=== PATIENT | male | born 1950 | race Caucasian/White ===

== ENCOUNTER 2020-02-15 19:33 | Inpatient (IN) | payer MEDICARE, OTHER ==
[~2020-02-15] VITALS: Ht 177.8 cm; Wt 113.4 kg
--- NOTE | 2020-02-15 19:35 | NUR ---
PT BIBRA FROM HOME C/O SOB. PT TESTED POSITIVE FOR COVID YESTERDAY. O2 77% RA. O2 90% ON 4L. PT BREATHING WITH DIFFICULTY, PLACED ON 15L O2 VIA NRB. PT SKIN WARM, DRY AND INTACT. PT PUT IN GOWN AND IV INTIATED. 20G IN LEFT HAND. PT ATTACHED TO MONITOR AND POX. CALL LIGHT WITHIN REACH. WILL CONTINUE TO MONITOR.
--- NOTE | 2020-02-15 19:40 | NUR ---
blood sample and blood cultures obtained and sent to lab
[2020-02-15] MEDS ORDERED: ALBUTEROL FS 2.5 MG/3 ML VIAL.NEB CONTNEB ONE (20:00)
[2020-02-15] MEDS ORDERED: DEXAMETHASONE SOD PHOSPHATE 10 MG/ML VIAL IV ONE (20:00)
[2020-02-15] MEDS ORDERED: IPRATROPIUM NEB FS 0.5 MG/2.5 ML AMPUL.NEB NEB ONE (20:00)
[2020-02-15 20:03] LABS: BASOPHILS # (AUTO) 0.1 /CMM (0.0-0.2); BASOPHILS % (AUTO) 1.6 % (0.0-2.0); HEMATOCRIT 46 % (39-51); HEMOGLOBIN 15.7 g/dL (13.5-17.5); LYMPHOCYTES # (AUTO) 0.7 /CMM (0.8-4.8); LYMPHOCYTES % (AUTO) 8.7 % (20.0-44.0); MEAN CORPUSCULAR HGB CONC 34 g/dl (31.0-36.0); MEAN CORPUSCULAR VOLUME 91 fL (80-96); MONOCYTES # (AUTO) 0.5 /CMM (0.1-1.30); MONOCYTES % (AUTO) 5.9 % (2.0-12.0); NEUTROPHILS % (AUTO) 83.8 % (43.0-81.0); PLATELET COUNT (AUTO) 239 /CMM (150-450); RED BLOOD CELL COUNT(AUTO) 5.09 MIL/uL (4.5-6.0); WHITE BLOOD COUNT (AUTO) 8.4 K/uL (4.3-11.0)
--- NOTE | 2020-02-15 20:07 | NUR ---
covid swab sent to lab
[2020-02-15] MEDS ORDERED: DEXAMETHASONE SOD PHOSPHATE 10 MG/ML VIAL ONE (20:11)
[2020-02-15] MEDS ORDERED: AZITHROMYCIN 500 MG in IV D5W 250 ML IV ONE (20:30)
[2020-02-15] MEDS ORDERED: CEFTRIAXONE 1GM BAG (ER ONLY) 50 ML IV ONE ×3 (20:30→22:45)
--- NOTE | 2020-02-15 20:34 | NUR ---
FRANCHESKA SHIRLEY [phone]
[2020-02-15 20:48] LABS: CALCIUM, SERUM 8.3 mg/dL (8.5-10.1); CARBON DIOXIDE 25 mmol/L (21-32); CHLORIDE 96 mmol/L (98-107); CREATININE 1.7 mg/dL (0.6-1.3); GLUCOSE 208 mg/dL (74-106); POTASSIUM 3.6 mmol/L (3.5-5.1); SODIUM SERUM 137 mmol/L (136-145); UREA NITROGEN, BLOOD 27 mg/dL (7-18)
[2020-02-15] MEDS ORDERED: DEXTROSE 50%-WATER 50 ML DISP.SYRIN IV PRN (21:00)
[2020-02-15 21:01] LABS: ALANINE AMINOTRANSFERASE 48 U/L (12-78); ALBUMIN 2.9 g/dL (3.4-5.0); ALKALINE PHOSPHATASE 55 U/L (46-116); ASPARTATE AMINOTRANSFERASE 54 U/L (15-37); B-TYPE NATRIURETIC PEPTIDE 1476 PG/ML (0-125); BILIRUBIN,TOTAL 0.7 mg/dL (0.2-1.0); TOTAL PROTEIN, SERUM 8.5 g/dL (6.4-8.2)
[2020-02-15 21:03] LABS: CREATINE KINASE, TOTAL 147 U/L (39-308); FERRITIN 331 ng/mL (8-388)
[2020-02-15] MEDS ORDERED: AZITHROMYCIN 500 MG VIAL ONE (21:09)
[2020-02-15] MEDS: BLOOD SUGAR DIAGNOSTIC 1 EACH STRIP IN SCH (22:00)
[2020-02-15] MEDS ORDERED: CEFTRIAXONE 1 G in IV D5W 50 ML IV SCH (22:00)
[2020-02-15] MEDS ORDERED: DOXYCYCLINE HYCLATE (100 MG) 100 MG TABLET ONE (22:45)
[2020-02-15] MEDS: HEPARIN SODIUM, PORCINE 5000 UNITS/1 ML VIAL SQ SCH (22:46)
[2020-02-15 22:53] LABS: C-REACTIVE PROTEIN 4.1 mg/dL (0.0-0.9)
[2020-02-15 23:20] LABS: BILIRUBIN,DIRECT 0.3 mg/dL (0.0-0.2)
[2020-02-15] MEDS: DOXYCYCLINE HYCLATE (100 MG) 100 MG TABLET PO SCH (23:20)
--- NOTE | 2020-02-15 23:41 | NUR ---
nonadmin scheduled 2199 rocephin 1gm iv d/t rocephin 1gm iv given to pt in er at 2116 per stan lopes.
[2020-02-16] VITALS: BP 143/75
--- NOTE | 2020-02-16 | NUR ---
GAVE REPORT TO LINDA FOR KENISHA
[2020-02-16] MEDS: GUAIFENESIN/CODEINE 10 ML UDC PO PRN (01:35)
--- NOTE | 2020-02-16 02:39 | NUR ---
RN notes Admitted a 69 year old male from ER with diagnosis of Covid19/PNA via stretcher accompanied by 3 staff. Alert and oriented x 4,slov[place] speaking but can understand turkish. Ambulatory with assist since patient is very weak. Noted with occasional non productive coughing. No complaint of pain or discomfort. On highflow nasal cannula at 60lpm tolerating well with )2sat at 96%. Vital signs wnl. Afebrile with skin warm and dry to touch. Kept clean and dry. Will endorse to next shift for continuity of care.
[2020-02-16 04:00] VITALS: BP 134/75
[2020-02-16 07:21] LABS: BASOPHILS % (AUTO) 0.1 % (0.0-2.0); HEMATOCRIT 45 % (39-51); LYMPHOCYTES # (AUTO) 0.7 /CMM (0.8-4.8); LYMPHOCYTES % (AUTO) 10.5 % (20.0-44.0); MEAN CORPUSCULAR HGB CONC 34 g/dl (31.0-36.0); MEAN CORPUSCULAR VOLUME 90 fL (80-96); MONOCYTES # (AUTO) 0.3 /CMM (0.1-1.30); MONOCYTES % (AUTO) 5.2 % (2.0-12.0); NEUTROPHILS # (AUTO) 5.7 /CMM (1.8-8.9); NEUTROPHILS % (AUTO) 84.2 % (43.0-81.0); PLATELET COUNT (AUTO) 254 /CMM (150-450); RED BLOOD CELL COUNT(AUTO) 4.97 MIL/uL (4.5-6.0); WHITE BLOOD COUNT (AUTO) 6.7 K/uL (4.3-11.0)
[2020-02-16 07:47] LABS: CALCIUM, SERUM 8.5 mg/dL (8.5-10.1); CREATININE 1.4 mg/dL (0.6-1.3); POTASSIUM 3.2 mmol/L (3.5-5.1)
[2020-02-16 07:53] LABS: ALBUMIN 2.7 g/dL (3.4-5.0); BILIRUBIN,TOTAL 0.6 mg/dL (0.2-1.0); TOTAL PROTEIN, SERUM 7.9 g/dL (6.4-8.2)
[2020-02-16 08:00] VITALS: BP 132/71
--- NOTE | 2020-02-16 08:02 | NUR ---
OPEN NOTES PATIENT IS A/O X 4 ON 60L FIO2 100% HIGH FLOW NASAL CANNULA WITH NO SIGNS OF DISTRESS. IV L HAND #20 G . ON TELE MONITOR SR. NO COMPLAIN OF PAIN AT THIS TIME. SAFETY MEASURES ARE APPLIED BED IS IN THE LOWEST POSITION SIDE RAILS UP X 2. CALL LIGHT WITHIN REACH WILL CONTINUE TO MONITOR.
[2020-02-16] MEDS: DOXYCYCLINE HYCLATE (100 MG) 100 MG TABLET PO SCH ×2 (08:39→17:02)
[2020-02-16] MEDS: ASPIRIN 81 MG TAB.CHEW PO SCH (08:39)
[2020-02-16] MEDS: BLOOD SUGAR DIAGNOSTIC 1 EACH STRIP IN SCH ×4 (08:39→21:26)
[2020-02-16] MEDS: HEPARIN SODIUM, PORCINE 5000 UNITS/1 ML VIAL SQ SCH ×2 (08:41→20:38)
[2020-02-16] MEDS: INSULIN REGULAR, HUMAN 100 UNIT/ML 3 ML VIAL SQ PRN ×4 (08:43→21:28)
[2020-02-16] MEDS: DEXAMETHASONE 4 MG TABLET PO SCH (08:53)
[2020-02-16 08:58] LABS: ALBUMIN 2.7 g/dL (3.4-5.0); BILIRUBIN,DIRECT 0.3 mg/dL (0.0-0.2); BILIRUBIN,TOTAL 0.6 mg/dL (0.2-1.0)
[2020-02-16] MEDS ORDERED: DOCU-270 PO (08:58)
[2020-02-16] MEDS ORDERED: TICA90TA PO (08:58)
[2020-02-16] MEDS ORDERED: CARV12.52 PO (08:58)
[2020-02-16] MEDS ORDERED: DEXL60CA3 PO (08:58)
[2020-02-16] MEDS ORDERED: RANO10005 PO (08:58)
[2020-02-16] MEDS ORDERED: ERGO500014 PO (08:58)
[2020-02-16] MEDS ORDERED: LOSA-22 PO (08:58)
[2020-02-16] MEDS ORDERED: EMPA25TA PO (08:58)
[2020-02-16] MEDS ORDERED: PRAV40TA3 PO (08:58)
[2020-02-16] MEDS ORDERED: ICOS1CAP PO (08:58)
[2020-02-16] MEDS ORDERED: FAMO20TA8 PO (08:58)
[2020-02-16] MEDS ORDERED: TAMS-12 PO (08:58)
[2020-02-16] MEDS ORDERED: ASPI-1420 PO (08:58)
[2020-02-16] MEDS ORDERED: DEXAMETHASONE 1 MG TABLET PO SCH (09:00)
[2020-02-16 09:15] LABS: C-REACTIVE PROTEIN 37.8 mg/dL (0.0-0.9)
[2020-02-16] MEDS ORDERED: REMDESIVIR (CHARGED) 200 MG, *LOADING DOSE 1 EA in IV NS 0.9% 210 ML IV ONE (10:00)
[2020-02-16] MEDS: POTASSIUM CHLORIDE 20 MEQ TAB.PRT.SR PO SCH ×2 (11:50→12:47)
[2020-02-16 12:00] VITALS: BP 134/76
[2020-02-16 13:47] LABS: C-REACTIVE PROTEIN 38.6 mg/dL (0.0-0.9)
[2020-02-16] MEDS ORDERED: TICAGRELOR 90 MG TABLET PO SCH (14:00)
[2020-02-16] MEDS: CARVEDILOL 12.5 MG TABLET PO SCH ×2 (14:02→20:48)
[2020-02-16 16:00] VITALS: BP 127/69
[2020-02-16] MEDS: ALBUTEROL SULFATE 8 GM HFA.AER.AD IH PRN (17:27)
--- NOTE | 2020-02-16 18:44 | NUR ---
RN CLOSING NOTES PATIENT IS A/O X 4 ON 60L FIO2 100% HIGH FLOW NASAL CANNULA WITH NO SIGNS OF DISTRESS. IV L HAND #20 G . ON TELE MONITOR SR WITH PVC. NO COMPLAIN OF PAIN AT THIS TIME. PATIENT KEPT CLEAN AND DRY. ALL NEEDS, CARE, TREATMENT, AND MEDICATIONS WERE ADMINISTERED ANTICIPATED PER ORDER. SAFETY MEASURES ARE APPLIED, BED IS IN LOW POSITION SIDE RAILS UP X 2. CALL LIGHT WITHIN REACH WILL ENDORSE TO THE MICROFILM MOUNTER NURSE.
--- NOTE | 2020-02-16 19:12 | NUR ---
RN NOTE RECEIVED PT IN BED AWAKE AND ALERT/ORIENTED X 3 IN HIGH MONIQUE'S POSITION. PT ON HI FLOW 60L 100% FIO2. PT SATURATION 92% VIA CONTINUOUS PULSE OX MONITORING. PT CURRENTLY WITHOUT SIGNS OF RESPIRATORY DISTRESS. DENIES PAIN OR DISCOMFORT. URINAL AT BED SIDE REACHABLE. SR ON THE TELE MONITOR WITH OCCASIONAL PVCS. LEFT HAND IV PATENT AND INTACT WITHOUT COMPLICATIONS NOTED AT SITE. PLAN OF CARE DISCUSSED, CALL LIGHT WITHIN REACH, SAFETY MEASURES IN PLACE PER PROTOCOL, WILL MONITOR PATIENT.
[2020-02-16 20:00] VITALS: BP 131/70
[2020-02-16] MEDS: CEFTRIAXONE 1 G in IV D5W 50 ML IV SCH (20:14)
--- NOTE | 2020-02-16 22:01 | NUR ---
RN NOTE ALL DUE MEDICATIONS ADMINISTERED. PT TOLERATED WELL, WILL CONTINUE TO MONITOR
[2020-02-16] MEDS: HYDROCODONE/APAP 5/325MG TABLET PO PRN (23:08)
--- NOTE | 2020-02-16 23:38 | NUR ---
RN NOTE PT REQUESTED PARTIAL BED BATH AND COMPLETE LINEN CHANGE. AFTERWARDS, PT BECAME SHORT OF BREATH WITH O2 SATURATION DROPPING TO 85%. PLACED PT ON 15L NON REBREATHER IN ADDITION TO HI FLOW. O2 SATURATION INCREASED TO 92-94%. WILL CONTINUE TO MONITOR. RT AT BEDSIDE MADE AWARE.
[2020-02-17] VITALS: BP 126/57
[2020-02-17] MEDS: GUAIFENESIN/CODEINE 10 ML UDC PO PRN (00:10)
--- NOTE | 2020-02-17 02:04 | NUR ---
RN NOTE PT SLEEPING IN BED IN SEMI MONIQUE'S POSITION. PT WITH HI FLOW 60L 100% FIO2 AND NON REBREATHER MASK 15L. RESPIRATIONS EVEN AND UNLABORED. NO SIGNS OR DISCOMFORT. O2 SATURATION 93%. WILL CONTINUE TO MONITOR.
[2020-02-17 04:00] VITALS: BP 129/63
[2020-02-17] MEDS: HYDROCODONE/APAP 5/325MG TABLET PO PRN (05:07)
[2020-02-17] MEDS: TICAGRELOR 90 MG TABLET PO SCH ×2 (05:07→18:09)
[2020-02-17 06:09] LABS: BASOPHILS % (AUTO) 0.1 % (0.0-2.0); HEMATOCRIT 42 % (39-51); HEMOGLOBIN 14.1 g/dL (13.5-17.5); LYMPHOCYTES # (AUTO) 0.7 /CMM (0.8-4.8); LYMPHOCYTES % (AUTO) 8.3 % (20.0-44.0); MEAN CORPUSCULAR HGB CONC 33 g/dl (31.0-36.0); MEAN CORPUSCULAR VOLUME 90 fL (80-96); MONOCYTES # (AUTO) 0.7 /CMM (0.1-1.30); MONOCYTES % (AUTO) 7.9 % (2.0-12.0); NEUTROPHILS % (AUTO) 83.7 % (43.0-81.0); PLATELET COUNT (AUTO) 277 /CMM (150-450); RED BLOOD CELL COUNT(AUTO) 4.69 MIL/uL (4.5-6.0); WHITE BLOOD COUNT (AUTO) 8.4 K/uL (4.3-11.0)
[2020-02-17 06:40] LABS: ALBUMIN 2.6 g/dL (3.4-5.0); BILIRUBIN,DIRECT 0.3 mg/dL (0.0-0.2); BILIRUBIN,TOTAL 0.5 mg/dL (0.2-1.0); CALCIUM, SERUM 8.4 mg/dL (8.5-10.1); CREATININE 1.3 mg/dL (0.6-1.3); MAGNESIUM 1.9 mg/dL (1.8-2.4); PHOSPHORUS 4.1 mg/dL (2.5-4.9); POTASSIUM 3.2 mmol/L (3.5-5.1); TOTAL PROTEIN, SERUM 7.3 g/dL (6.4-8.2)
--- NOTE | 2020-02-17 07:03 | NUR ---
RN NOTE PT SLEEPING IN BED IN HIGH MONIQUE'S POSITION EASILY AROUSABLE. PT ON HI FLOW 60L 100% FIO2 AND 15L NON REBREATHER. PT SATURATION 93% VIA CONTINUOUS PULSE OX MONITORING. PT CURRENTLY WITHOUT SIGNS OF RESPIRATORY DISTRESS. NO SIGNS OR SYMPTOMS OF PAIN OR DISCOMFORT, URINAL AT BED SIDE REACHABLE. PT HAS BEEN SR VIA TELE MONITOR ALL SHIFT. LEFT HAND IV PATENT AND INTACT. FLUSHED WITHOUT COMPLICATIONS NOTED AT SITE, ALL NEEDS MET AND ATTENDED TO, CALL LIGHT WITHIN REACH, SAFETY MEASURES IN PLACE PER PROTOCOL, BED LOCKED AND IN LOW POSITION, SIDE RAILS UP X 2, WILL ENDORSE TO MORNING RN FOR KENISHA.
[2020-02-17] MEDS: BLOOD SUGAR DIAGNOSTIC 1 EACH STRIP IN SCH ×4 (07:30→21:14)
--- NOTE | 2020-02-17 07:30 | NUR ---
BIOINFORMATICS ANALYST OPENING NOTES PATIENT IS A/O X 4 IN ROOM AIR, WITH NO SIGNS OF DISTRESS. IV R AC #20 G. NOT IN ANY ACUTE DISTRESS NOTED AT THIS TIME. SAFETY MEASURES ARE APPLIED BED IS IN THE LOWEST POSITION SIDE RAILS UP X 2. CALL LIGHT WITHIN REACH WILL CONTINUE TO MONITOR.
[2020-02-17 08:00] VITALS: BP 128/74
[2020-02-17] MEDS: HEPARIN SODIUM, PORCINE 5000 UNITS/1 ML VIAL SQ SCH ×2 (09:59→20:49)
[2020-02-17] MEDS ORDERED: REMDESIVIR (CHARGED) 100 MG in IV NS 0.9% 230 ML IV SCH (10:00)
[2020-02-17] MEDS: DOXYCYCLINE HYCLATE (100 MG) 100 MG TABLET PO SCH ×2 (10:00→18:09)
[2020-02-17] MEDS: DEXAMETHASONE 4 MG TABLET PO SCH (10:00)
[2020-02-17] MEDS: ASPIRIN 81 MG TAB.CHEW PO SCH (10:00)
[2020-02-17] MEDS: CARVEDILOL 12.5 MG TABLET PO SCH ×2 (10:01→20:47)
[2020-02-17] MEDS: INSULIN REGULAR, HUMAN 100 UNIT/ML 3 ML VIAL SQ PRN ×4 (10:20→21:14)
[2020-02-17] MEDS: POTASSIUM CHLORIDE 20 MEQ TAB.PRT.SR PO SCH ×2 (11:30→12:42)
[2020-02-17 12:00] VITALS: BP 128/74
[2020-02-17] MEDS: REMDESIVIR (CHARGED) 100 MG in IV NS 0.9% 100 ML IV SCH (12:41)
[2020-02-17 15:39] LABS: C-REACTIVE PROTEIN 19.2 mg/dL (0.0-0.9)
[2020-02-17 16:00] VITALS: BP 128/74
--- NOTE | 2020-02-17 18:56 | NUR ---
VAPOR COATER CLOSING NOTES PATIENT IS A/O X 4 ON 60L FIO2 100% HIGH FLOW NASAL CANNULA WITH NO SIGNS OF DISTRESS. IV L HAND #20 G . ON TELE MONITOR SR WITH PVC. NO COMPLAIN OF PAIN AT THIS TIME. PATIENT KEPT CLEAN AND DRY. ALL NEEDS, CARE, TREATMENT, AND MEDICATIONS WERE ADMINISTERED ANTICIPATED PER ORDER. SAFETY MEASURES ARE APPLIED, BED IS IN LOW POSITION SIDE RAILS UP X 2. CALL LIGHT WITHIN REACH WILL ENDORSE TO THE REWIND OPERATOR NURSE.
--- NOTE | 2020-02-17 19:30 | NUR ---
RECEIVED PT ON BED AWAKE A/0X4 VERBALIZED NEEDS ON 15L NRB MASK SPO2 92% AND HIGH FLOW 60L 100% FIO2 HAVE IV ON LEFT HAND # 20 PATENT AND FLUSHED TELE MONITOR READS SINUS RHYTHM 90, ON DROPLET ISOLATION FOR COVID 19, SAFETY MEASURE MAINTAINED BED ON LOWEST POSITION AND LOCKED SIDE RAILS UP X2 CALL LIGHT WITHIN REACH WILL CONT TO MONITOR
[2020-02-17 20:00] VITALS: BP 130/71
[2020-02-17] MEDS: CEFTRIAXONE 1 G in IV D5W 50 ML IV SCH (20:47)
[2020-02-18] VITALS: BP 131/74
[2020-02-18] MEDS: HYDROCODONE/APAP 5/325MG TABLET PO PRN ×4 (01:32→22:53)
[2020-02-18] MEDS: ALBUTEROL SULFATE 8 GM HFA.AER.AD IH PRN (01:33)
[2020-02-18 04:00] VITALS: BP_SYST 131; BP_SYST 136; BP_DIAS 71; BP_DIAS 74
[2020-02-18] MEDS: TICAGRELOR 90 MG TABLET PO SCH ×2 (06:29→17:01)
--- NOTE | 2020-02-18 06:58 | NUR ---
PT ON BED ASLEEP EASY TO WAKE UP STILL ON NRM 15L AND HIGHFLOW 60L 100% FIO2 SPO2 90-92% TELE MONITOR READS SINUS RHYTHM 80'S NO SIGNIFICANT CHANGES ON CONDITION NOTED ALL NEEDS ATTENDED, BED ON LOWEST POSITION AND LOCKED SIDE RAIL UP X2 CALL LIGHT WITHIN REACH WILL ENDORSED TO AM SHIFT NURSE
[2020-02-18 08:00] VITALS: BP 127/65
--- NOTE | 2020-02-18 08:00 | NUR ---
RN OPENING NOTE. RECEIVED PATIENT IN BED, AWAKE, AND ORIENTED. PATIENT IS AOX3. PATIENT IS ON A NONREBREATHER ,MASK AT 15L AND A HIGH FLOW AT 60L 100% FIO2. SKIN IS INTACT. LHAND #20 IS PATENT, INTACT, AND HAS NO SIGNS OF INFILTRATION. BED IS IN THE LOWEST POSITION, 2 SIDE RAILS RAISED, CALL COHEN WITHIN REACH, AND ALL HOSPITAL SAFETY PRECAUTIONS ARE BEING FOLLOWED. WILL CONTINUE TO MONITOR THROUGHOUT SHIFT.
[2020-02-18] MEDS: CARVEDILOL 12.5 MG TABLET PO SCH ×2 (08:38→21:25)
[2020-02-18] MEDS: ASPIRIN 81 MG TAB.CHEW PO SCH (08:38)
[2020-02-18] MEDS: DOXYCYCLINE HYCLATE (100 MG) 100 MG TABLET PO SCH ×2 (08:39→16:28)
[2020-02-18] MEDS: DEXAMETHASONE 4 MG TABLET PO SCH (08:39)
[2020-02-18 08:40] LABS: BASOPHILS % (AUTO) 0.1 % (0.0-2.0); EOSINOPHILS % (AUTO) 0.2 % (0.0-6.0); HEMATOCRIT 43 % (39-51); HEMOGLOBIN 14.2 g/dL (13.5-17.5); LYMPHOCYTES # (AUTO) 0.6 /CMM (0.8-4.8); LYMPHOCYTES % (AUTO) 8.2 % (20.0-44.0); MEAN CORPUSCULAR HGB CONC 33 g/dl (31.0-36.0); MEAN CORPUSCULAR VOLUME 91 fL (80-96); MONOCYTES # (AUTO) 0.4 /CMM (0.1-1.30); MONOCYTES % (AUTO) 5.7 % (2.0-12.0); NEUTROPHILS # (AUTO) 6.5 /CMM (1.8-8.9); NEUTROPHILS % (AUTO) 85.8 % (43.0-81.0); PLATELET COUNT (AUTO) 301 /CMM (150-450); RED BLOOD CELL COUNT(AUTO) 4.68 MIL/uL (4.5-6.0); WHITE BLOOD COUNT (AUTO) 7.6 K/uL (4.3-11.0)
[2020-02-18] MEDS: HEPARIN SODIUM, PORCINE 5000 UNITS/1 ML VIAL SQ SCH ×2 (08:40→21:27)
[2020-02-18 08:53] LABS: ALBUMIN 2.5 g/dL (3.4-5.0); BILIRUBIN,DIRECT 0.3 mg/dL (0.0-0.2); BILIRUBIN,TOTAL 0.6 mg/dL (0.2-1.0); CALCIUM, SERUM 8.5 mg/dL (8.5-10.1); CREATININE 1.1 mg/dL (0.6-1.3); PHOSPHORUS 3.8 mg/dL (2.5-4.9); POTASSIUM 3.3 mmol/L (3.5-5.1); TOTAL PROTEIN, SERUM 7.2 g/dL (6.4-8.2)
[2020-02-18] MEDS: BLOOD SUGAR DIAGNOSTIC 1 EACH STRIP IN SCH ×4 (09:30→21:43)
[2020-02-18] MEDS: REMDESIVIR (CHARGED) 100 MG in IV NS 0.9% 100 ML IV SCH (11:24)
[2020-02-18] MEDS ORDERED: POTASSIUM CHLORIDE 20 MEQ TAB.PRT.SR PO SCH (11:30)
[2020-02-18 12:00] VITALS: BP 149/97
[2020-02-18] MEDS: INSULIN REGULAR, HUMAN 100 UNIT/ML 3 ML VIAL SQ PRN ×3 (12:41→21:45)
--- NOTE | 2020-02-18 13:15 | NUR ---
O2 SAT DROPPED TO 86%. SUPERVISOR FARM EQUIPMENT MAINTENANCE DR. NOBLE NOTIFIED AND HE MADE PATIENT AND FAMILY AWARE OF CONDITION.
[2020-02-18 16:00] VITALS: BP 149/97
--- NOTE | 2020-02-18 16:15 | NUR ---
CHESTNUT TANNER NOTE PER DR NOBLE POURER METAL OK TO ORDER CONVALESCENT PLASMA , WILL AWAITE FOR ID DOCTOR TO PLACE ORDER ON COMPUTER DUE TO NURSING STAFF DONT HAVE ACCESS
[2020-02-18 16:42] LABS: C-REACTIVE PROTEIN 10.5 mg/dL (0.0-0.9)
--- NOTE | 2020-02-18 18:33 | NUR ---
RN CLOSING NOTE PATIENT IS IN BED WITH HOB AT SEMI FOWLERS POSITION. PATIENT IS AOX4. NON REBREATHER MASK IS APPLIED GIVING 15L OF O2 AND A HIGH FLOW AT 60L WITH 100% FIO2. SKIN IS INTACT WITH URINAL AT THE BEDSIDE. RIGHT HAND #20 IS INTACT, PATENT, AND HAS NO SIGNS OF INFILTRATION. BED IS LOCKED IN THE LOWEST POSITION, CALL COHEN WITHIN REACH, 3 SIDE RAILS ARE RAISED, AND ALL HOSPITAL SAFETY PRECAUTIONS ARE BEING FOLLOWED. WILL ENDORSE TO RESIDENTIAL SALES MANAGER NURSE.
--- NOTE | 2020-02-18 18:48 | NUR ---
SPECIAL LIBRARY LIBRARIAN NOTE PATIENT RECEIVED NORCO 1 TABLET FOR 8/10 ABDOMINAL PAINT. HR 73 AND O2 SAT 93%. WILL CONTINUE TO MONITOR/ENDORSE TO EDUCATION AND DEVELOPMENT MANAGER RN.
[2020-02-18 20:00] VITALS: BP 153/65
--- NOTE | 2020-02-18 20:16 | NUR ---
RN NOTES PATIENT ALERT AND ORIENTED X3, AWAKE AND RESPONSIVE. ON NON REBREATHER @ 15L, O2 SAT WNL. DENIES ANY PAIN. WITH RIGHT HAND #20, PATENT AND INTACT. FLUSHED WITH NS. BED LOCKED AND IN LOWEST POSITION. SIDE RAILS UP X2. CALL LIGHT WITHIN REACH. SAFETY MEASURES IMPLEMENTED PER FACILITY PROTOCOL. WILL CONTINUE TO MONITOR.
[2020-02-18] MEDS: CEFTRIAXONE 1 G in IV D5W 50 ML IV SCH (21:25)
[2020-02-18] MEDS: GUAIFENESIN/CODEINE 10 ML UDC PO PRN (23:22)
[2020-02-19] VITALS (7 sets, daily range): BP systolic 119–139; BP diastolic 64–70
[2020-02-19] MEDS: HYDROCODONE/APAP 5/325MG TABLET PO PRN ×5 (03:36→23:51)
[2020-02-19] MEDS: TICAGRELOR 90 MG TABLET PO SCH ×2 (05:56→17:12)
[2020-02-19 06:32] LABS: BASOPHILS % (AUTO) 0.1 % (0.0-2.0); EOSINOPHILS % (AUTO) 0.3 % (0.0-6.0); HEMATOCRIT 45 % (39-51); HEMOGLOBIN 14.7 g/dL (13.5-17.5); LYMPHOCYTES # (AUTO) 0.5 /CMM (0.8-4.8); MEAN CORPUSCULAR HGB CONC 33 g/dl (31.0-36.0); MEAN CORPUSCULAR VOLUME 91 fL (80-96); MONOCYTES # (AUTO) 0.3 /CMM (0.1-1.30); NEUTROPHILS # (AUTO) 7.7 /CMM (1.8-8.9); NEUTROPHILS % (AUTO) 90.6 % (43.0-81.0); PLATELET COUNT (AUTO) 329 /CMM (150-450); RED BLOOD CELL COUNT(AUTO) 4.92 MIL/uL (4.5-6.0); WHITE BLOOD COUNT (AUTO) 8.5 K/uL (4.3-11.0)
--- NOTE | 2020-02-19 07:00 | NUR ---
RN NOTES PATIENT ALERT AND ORIENTED X3, AWAKE AND RESPONSIVE. ON NON REBREATHER @ 15L AND HF 60L 100% FIO2 100%. O2 SAT 94%. DENIES ANY PAIN. WITH RIGHT HAND #20, PATENT AND INTACT. FLUSHED WITH NS. TELE MONITOR ON, HR 87. BED LOCKED AND IN LOWEST POSITION. SIDE RAILS UP X2. CALL LIGHT WITHIN REACH. SAFETY MEASURES IMPLEMENTED PER FACILITY PROTOCOL. WILL ENDORSE TO ONCOMING SHIFT.
[2020-02-19 07:07] LABS: ALBUMIN 2.5 g/dL (3.4-5.0); BILIRUBIN,DIRECT 0.8 mg/dL (0.0-0.2); BILIRUBIN,TOTAL 1.2 mg/dL (0.2-1.0); CALCIUM, SERUM 8.3 mg/dL (8.5-10.1); POTASSIUM 3.7 mmol/L (3.5-5.1); TOTAL PROTEIN, SERUM 7.3 g/dL (6.4-8.2)
[2020-02-19] MEDS: BLOOD SUGAR DIAGNOSTIC 1 EACH STRIP IN SCH ×4 (07:30→21:56)
--- NOTE | 2020-02-19 07:30 | NUR ---
RN TELE1 PATIENT IN BED, NO S/S OF DISTRESS, A/O X3, SINUS RHYTHM TELE MONITOR IN PLACE, USES URINAL, CCHO DIET, R HAND 20 G, INTACT FLUSHES WELL, BED IN LOWEST LOCKED POSITION, CALL LIGHT WITHIN REACH, WILL CONTINUE TO MONITOR.
[2020-02-19 07:31] LABS: CREATINE KINASE, TOTAL 71 U/L (39-308); FERRITIN 263 ng/mL (8-388)
[2020-02-19] MEDS: INSULIN REGULAR, HUMAN 100 UNIT/ML 3 ML VIAL SQ PRN ×4 (08:47→22:58)
[2020-02-19] MEDS: ASPIRIN 81 MG TAB.CHEW PO SCH (08:48)
[2020-02-19] MEDS: DEXAMETHASONE 4 MG TABLET PO SCH (08:48)
[2020-02-19] MEDS: DOXYCYCLINE HYCLATE (100 MG) 100 MG TABLET PO SCH ×2 (08:48→17:12)
[2020-02-19] MEDS: HEPARIN SODIUM, PORCINE 5000 UNITS/1 ML VIAL SQ SCH ×2 (08:51→21:40)
[2020-02-19] MEDS: CARVEDILOL 12.5 MG TABLET PO SCH ×2 (08:52→21:36)
[2020-02-19] MEDS: REMDESIVIR (CHARGED) 100 MG in IV NS 0.9% 100 ML IV SCH (10:40)
--- NOTE | 2020-02-19 11:00 | NUR ---
RN TELE1 BECAME ANXIOUS AFTER PRONING, PULLED OFF SIMPLE MASK AND HIGH FLOW, DESATURATED TO 85%, USED CALMING TECHNIQUES TO RELAX THE PATIENT, PUT BACK ON THE O2 DELIVERY AND O2 SAT WENT BACK UP TO 92%, WILL CONTINUE TO EDUCATE.
--- NOTE | 2020-02-19 13:00 | NUR ---
RN TELE1 PATIENT SITTING UP IN BED, TOLERATING WELL, O2 SAT 89% TOLD BY RT THAT THE PATIENT IS STABLE LONG HE IS >88%.
[2020-02-19 17:26] LABS: C-REACTIVE PROTEIN 23.4 mg/dL (0.0-0.9)
--- NOTE | 2020-02-19 18:30 | NUR ---
RN TELE1 PATIENT DISLODGED HIS IV IN THE R HAND, REMOVED AND REPLACED WITH ASSISTANCE OF SOON THE CHARGE NURSE.
--- NOTE | 2020-02-19 19:30 | NUR ---
RN TELE1 PATIENT IN BED, NO S/S OF DISTRESS, A/O X3, SINUS RHYTHM TELE MONITOR IN PLACE, USES URINAL, CCHO DIET, R HAND 18G, INTACT FLUSHES WELL, BED IN LOWEST LOCKED POSITION, CALL LIGHT WITHIN REACH, WILL CONTINUE TO MONITOR.
--- NOTE | 2020-02-19 20:15 | NUR ---
RN NOTES RECEIVED PT IN BED. ON NONREBREATHER AND HIGH FLOW 40L [id number] %, SATING AT 86-88%. NOT DISTRESS NOTED. PT DENIES SOB, HOB ELEVATED. PT COMMUNICATING VERBALLY. RT MADE AWARE OF THE SATURATION. REPOSITIONED PT. TELE MONITOR SHOWS SR HR AT 68. IV ON RIGHT FA G18 PATENT AND INTACT, FLUSHED. NO SIGNS OF INFILTRATION.NO SIGNS OF PAIN. ALL SAFETY MEASURES IMPLEMENTED PER PROTOCOL. CALL LIGHT WITHIN REACH. BED LOCKED IN LOWEST POSITION. SIDE RAILS UP X 2.
[2020-02-19] MEDS: CEFTRIAXONE 1 G in IV D5W 50 ML IV SCH (21:35)
--- NOTE | 2020-02-19 23:51 | NUR ---
RN NOTE PT COMPLAINED OF GENERALIZED BODY ACHE 09/17 AND ASKED FOR. EXPLAINED RISKS AND BENEFITS OF NORCO. PT WITH EPISODES OF SOB WHEN MOVING. 02 SAT GOES DOWN TO 84. BREATHING TECHNIQUES GIVEN. O2 SAT GOING UP TO 90%. NORCO GIVEN ORDERED.
[2020-02-20] VITALS: BP 133/68
[2020-02-20] MEDS: ACETAMINOPHEN 325 MG TABLET PO PRN (03:49)
--- NOTE | 2020-02-20 03:49 | NUR ---
RN NOTE PT COMPLAINED AGAIN OF GENERALIZED BODY ACHE. TYLENOL 650 MG GIVEN
[2020-02-20 04:00] VITALS: BP 138/63
[2020-02-20] MEDS: TICAGRELOR 90 MG TABLET PO SCH ×2 (05:11→17:32)
[2020-02-20 06:43] LABS: BASOPHILS % (AUTO) 0.1 % (0.0-2.0); EOSINOPHILS % (AUTO) 0.6 % (0.0-6.0); HEMATOCRIT 44 % (39-51); HEMOGLOBIN 14.8 g/dL (13.5-17.5); LYMPHOCYTES # (AUTO) 0.6 /CMM (0.8-4.8); MEAN CORPUSCULAR HGB CONC 33 g/dl (31.0-36.0); MEAN CORPUSCULAR VOLUME 91 fL (80-96); MONOCYTES # (AUTO) 0.3 /CMM (0.1-1.30); MONOCYTES % (AUTO) 3.4 % (2.0-12.0); NEUTROPHILS # (AUTO) 9.3 /CMM (1.8-8.9); NEUTROPHILS % (AUTO) 89.9 % (43.0-81.0); PLATELET COUNT (AUTO) 337 /CMM (150-450); RED BLOOD CELL COUNT(AUTO) 4.85 MIL/uL (4.5-6.0); WHITE BLOOD COUNT (AUTO) 10.3 K/uL (4.3-11.0)
[2020-02-20 07:10] LABS: ALBUMIN 2.3 g/dL (3.4-5.0); BILIRUBIN,DIRECT 0.5 mg/dL (0.0-0.2); BILIRUBIN,TOTAL 0.9 mg/dL (0.2-1.0); CALCIUM, SERUM 8.6 mg/dL (8.5-10.1); POTASSIUM 3.8 mmol/L (3.5-5.1); TOTAL PROTEIN, SERUM 7.1 g/dL (6.4-8.2)
[2020-02-20 07:17] LABS: CREATINE KINASE, TOTAL 50 U/L (39-308); FERRITIN 334 ng/mL (8-388)
--- NOTE | 2020-02-20 07:30 | NUR ---
RN NOTES PT SITTING ON SIDE OF THE BED. ALERT AND VERBALLY RESPONDING. NOT IN ANY ACUTE DISTRESS. REMAINS ON NONREBREATHER AND HFNC 40L 100 %. PT WITH EPISODES OF SOB, PT TAUGHT ABOUT BREATHING TECHNIQUES, TRIED PRONING PT, DID NOT TOLERATE. KEPT HOB ELEVATED. WITH BREATHING TECHNIQUES O2 SAT GOES TO 94%. TELE MONITORING SR HR 77. ON FREQUENT VISUAL CHECKS, NEEDS ATTENDED. WILL ENDORSE TO NEXT SHIFT NURSE. ISOLATION PRECAUTION MAINTAINED. BED LOCKED IN LOWEST POSITION, BED ALARM ON. CALL LIGHT WITHIN REACH.
[2020-02-20] MEDS: HYDROCODONE/APAP 5/325MG TABLET PO PRN ×3 (07:50→22:05)
[2020-02-20] MEDS: BLOOD SUGAR DIAGNOSTIC 1 EACH STRIP IN SCH ×4 (07:55→22:03)
[2020-02-20 08:00] VITALS: BP 146/90
--- NOTE | 2020-02-20 08:00 | NUR ---
RN NOTES PT SITTING ON SIDE OF THE BED. ALERT AND VERBALLY RESPONDING. REMAINS ON NONREBREATHER AND HFNC 40L 100 %. PT WITH EPISODES OF SOB, , TRIED PRONING PT, DID NOT TOLERATE. KEPT HOB ELEVATED. WITH BREATHING TECHNIQUES O2 SAT GOES TO 86 %. TELE MONITORING SR HR 77. ON FREQUENT VISUAL CHECKS, NEEDS ATTENDED. . ISOLATION PRECAUTION MAINTAINED. BED LOCKED IN LOWEST POSITION, BED ALARM ON. CALL LIGHT WITHIN REACH.
[2020-02-20 08:54] LABS: ABG BASE EXCESS -1.6 mmol/L; ABG OXYGEN SATURATION 97.1 % (92.0-98.5); ABG PCO2 29.8 mmHg (35.0-45.0); ABG PH 7.463 (7.350-7.450); AaDO2 590.2 mmHg; COHb 0.7 % (0.5-1.5); MetHb 0.1 % (0.0-1.5); O2Hb 96.3 % (94.0-97.0); SITE, ABG Left Radial; VENT MODE, BG 40L 100% +nrb
[2020-02-20] MEDS: HEPARIN SODIUM, PORCINE 5000 UNITS/1 ML VIAL SQ SCH ×2 (09:08→20:10)
[2020-02-20] MEDS: ASPIRIN 81 MG TAB.CHEW PO SCH (09:09)
[2020-02-20] MEDS: DEXAMETHASONE 4 MG TABLET PO SCH (09:09)
[2020-02-20] MEDS: DOXYCYCLINE HYCLATE (100 MG) 100 MG TABLET PO SCH ×2 (09:09→16:20)
[2020-02-20] MEDS: CARVEDILOL 12.5 MG TABLET PO SCH ×2 (09:10→20:38)
[2020-02-20] MEDS: REMDESIVIR (CHARGED) 100 MG in IV NS 0.9% 100 ML IV SCH (10:32)
--- NOTE | 2020-02-20 11:00 | NUR ---
WIRE REPAIRER NOTE DR WHITE AT BEDSIDE SPOKE WITH PATIENT ABOUT HIS CONDITION
[2020-02-20 12:00] VITALS: BP_SYST 145; BP_SYST 146; BP_DIAS 87; BP_DIAS 90
--- NOTE | 2020-02-20 12:31 | NUR ---
dr. gar notified to put order for convalescent plasma since dr. mooney and dr. valenzuela no access unable to place order.
[2020-02-20] MEDS: INSULIN REGULAR, HUMAN 100 UNIT/ML 3 ML VIAL SQ PRN ×3 (13:00→22:02)
--- NOTE | 2020-02-20 14:40 | NUR ---
television actor note consent for convalescent plasma done and sent to lab
[2020-02-20 16:00] VITALS: BP_SYST 134; BP_SYST 144; BP_DIAS 66; BP_DIAS 67
[2020-02-20 16:04] LABS: C-REACTIVE PROTEIN 34.6 mg/dL (0.0-0.9)
--- NOTE | 2020-02-20 18:35 | NUR ---
[employer] FLATBED DRIVER NOTE PATIENT ON HIGH FLOW ORDERED AND NONREBREATHER MASK, SATURATION 91%, WILL CONT TO MONITOR
--- NOTE | 2020-02-20 19:30 | NUR ---
RN OPENING NOTE RECEIVED PATIENT IN UP CHAIR SITTING ALERT ORIENTED X4 VERBALLY RESPONSIVE ROMANSH SPEAKER,ON MONITORING FOR COVID POSITIVE,ON HIGH FLOW OXYGEN 40L FIO2:100% AND 15L NON REBREATHER MAKE,O2:89% IV SITE IS ON RIGHT FOREARM INTACT PATENT,CONTINENT TO BOWEL/BLADDER,SAFETY MEASURE IMPLEMENT KEEP CALL LIGHT WITHIN REACH,CONTINUE TO MONITOR.
[2020-02-20 20:00] VITALS: BP 144/83
[2020-02-20] MEDS ORDERED: ACETAMINOPHEN 325 MG TABLET PO ONE (20:30)
[2020-02-20] MEDS ORDERED: diphenhydrAMINE HCL 50 MG/ML VIAL IV ONE (20:30)
[2020-02-20] MEDS: CEFTRIAXONE 1 G in IV D5W 50 ML IV SCH (20:31)
[2020-02-20] MEDS ORDERED: TOCILIZUMAB 400 MG in IV NS 0.9% 80 ML IV ONE (21:00)
[2020-02-21] VITALS: BP 116/63
[2020-02-21] MEDS: TEMAZEPAM 15 MG CAPSULE PO PRN (01:06)
[2020-02-21] MEDS: ONDANSETRON HCL/PF 4 MG/2 ML VIAL IVP PRN (01:06)
[2020-02-21 04:00] VITALS: BP 111/59
[2020-02-21] MEDS: TICAGRELOR 90 MG TABLET PO SCH ×2 (06:09→17:17)
[2020-02-21] MEDS: HYDROCODONE/APAP 5/325MG TABLET PO PRN ×2 (06:14→18:54)
--- NOTE | 2020-02-21 06:38 | NUR ---
RN CLOSING NOTE PATIENT REMAINS ON ALERT ORIENTED X4 ON HIGH FLOW OXYGEN 40L FIO2 100% AND 15L NON REBREATHER MASK,O2:88-92%IV SIT IS ON RIGHT FOREARM INTACT PATENT,ALL DUE MEDS GIVEN MD ORDERED,KEPT CALL LIGHT WITHIN REACH,KEPT COMFORTABLE,ALL NEEDS MET,ENDORSE NEXT COMING SHIFT FOR CONTINUATION OF CARE.
[2020-02-21 06:59] LABS: BASOPHILS % (AUTO) 0.3 % (0.0-2.0); EOSINOPHILS % (AUTO) 1.1 % (0.0-6.0); HEMATOCRIT 44 % (39-51); HEMOGLOBIN 14.6 g/dL (13.5-17.5); LYMPHOCYTES # (AUTO) 0.6 /CMM (0.8-4.8); LYMPHOCYTES % (AUTO) 7.2 % (20.0-44.0); MEAN CORPUSCULAR HGB CONC 33 g/dl (31.0-36.0); MEAN CORPUSCULAR VOLUME 91 fL (80-96); MONOCYTES # (AUTO) 0.3 /CMM (0.1-1.30); MONOCYTES % (AUTO) 3.4 % (2.0-12.0); NEUTROPHILS # (AUTO) 6.9 /CMM (1.8-8.9); PLATELET COUNT (AUTO) 385 /CMM (150-450); RED BLOOD CELL COUNT(AUTO) 4.81 MIL/uL (4.5-6.0); WHITE BLOOD COUNT (AUTO) 7.8 K/uL (4.3-11.0)
[2020-02-21 07:11] LABS: CALCIUM, SERUM 8.7 mg/dL (8.5-10.1); MAGNESIUM 2.2 mg/dL (1.8-2.4); PHOSPHORUS 4.3 mg/dL (2.5-4.9); POTASSIUM 4.3 mmol/L (3.5-5.1)
[2020-02-21 08:00] VITALS: BP 154/70
--- NOTE | 2020-02-21 08:00 | NUR ---
RN Opening note Received patient in bed, AO x 4 able to responds all stimuli, Pt does no appears pain or distress. Skin is warm to touch keep clean/dry intact IV site on right FA 18G, respiratory even and unlabored with hi flow at 40L and FiO2 100% O2sat 93%. Kept locked bed with elevated HOB for aspiration precaution and ensure airway and lowest bed foe safety. Call light within reach, will continue to monitor.
[2020-02-21] MEDS: BLOOD SUGAR DIAGNOSTIC 1 EACH STRIP IN SCH ×4 (08:57→22:17)
[2020-02-21] MEDS: ASPIRIN 81 MG TAB.CHEW PO SCH (08:57)
[2020-02-21] MEDS: CARVEDILOL 12.5 MG TABLET PO SCH ×2 (08:58→22:17)
[2020-02-21] MEDS: DEXAMETHASONE 4 MG TABLET PO SCH (08:58)
[2020-02-21] MEDS: DOXYCYCLINE HYCLATE (100 MG) 100 MG TABLET PO SCH ×2 (08:58→17:17)
[2020-02-21] MEDS: HEPARIN SODIUM, PORCINE 5000 UNITS/1 ML VIAL SQ SCH ×2 (08:59→22:19)
[2020-02-21] MEDS: INSULIN REGULAR, HUMAN 100 UNIT/ML 3 ML VIAL SQ PRN ×3 (11:52→23:31)
[2020-02-21 12:00] VITALS: BP 127/61
--- NOTE | 2020-02-21 13:43 | NUR ---
PATIENT IS COMPLAINING OF PAIN. PATIENT REQUESTING PAIN MANAGEMENT. NURSE NOTIFIED AT THIS TIME.
[2020-02-21] MEDS: ACETAMINOPHEN 325 MG TABLET PO PRN (13:48)
[2020-02-21 16:00] VITALS: BP 127/61
[2020-02-21 17:04] LABS: C-REACTIVE PROTEIN 36.6 mg/dL (0.0-0.9)
--- NOTE | 2020-02-21 18:50 | NUR ---
RN closing Patient in bed resting, patient c/o stomach pain and given [place]. Skin is warm to touch no fever keep clean/dry, intact IV site. Respiratory even and unlabored with oxygen at 15L with NRM O2sat 94%. Kept elevated HOB for ensure air way and aspiration precaution and lowest bed for safety. Call light within reach, will endorse maintenance technician 2nd shift
--- NOTE | 2020-02-21 18:55 | NUR ---
RN closing Patient in bed resting, patient c/o stomach pain and given [place]. Skin is warm to touch no fever keep clean/dry, intact IV site. Respiratory even and unlabored with high flow oxygen at 40L Fio2 100% O2sat 94%. Kept elevated HOB for ensure air way and aspiration precaution and lowest bed for safety. Call light within reach, will endorse roll icer machine Addendum: 02/21/20 at 1901 by STEPHANIE CORDERO RN Error
[2020-02-21 20:00] VITALS: BP 123/51
[2020-02-21] MEDS: CEFTRIAXONE 1 G in IV D5W 50 ML IV SCH (20:23)
--- NOTE | 2020-02-21 22:57 | NUR ---
RN NOTE PATIENT'S PULSE IS 63 & O2 SAT IS 93 %. ON HIGH FLOW 40%, FIO2 100%. PATIENT IS SITTING IN UPRIGHT POSITION. ASSESSED BY RT & WILL CONTINUE TO MONITOR FOR ANY CHANGES.
[2020-02-22] VITALS (11 sets, daily range): BP systolic 117–135; BP diastolic 49–73
--- NOTE | 2020-02-22 00:25 | NUR ---
RN NOTE PATIENT IS SITTING UP IN A CHAIR NEXT TO HIS BED. SPO2 IS 93% AT THIS TIME. PATIENT IS A & O X 4. CONTINUING TO MONITOR CLOSELY FOR ANY CHANGE OF CONDITION.
[2020-02-22] MEDS: HYDROCODONE/APAP 5/325MG TABLET PO PRN ×5 (01:23→22:51)
--- NOTE | 2020-02-22 01:24 | NUR ---
RN NOTE PATIENT C/O GENERALIZED BODY PAIN 09/17 & WANTED TO TAKE NORCO ONLY AT THIS TIME. PRN NORCO 5/325 MG 1 TAB PO GIVEN. WILL CONTINUE TO MONITOR FOR ANY CHANGES.
--- NOTE | 2020-02-22 01:39 | NUR ---
RN NOTE PATIENT'S SON CALLED FOR AN UPDATE, UPDATED THE SON ABOUT PATIENT'S CONDITION. PATIENT LIKES TO STAY IN THE CHAIR AT THIS TIME, WATCHING TV. O2 SAT IS 94% ON THE BED SIDE MONITOR. WILL CONTINUE TO MONITOR CLOSELY FOR ANY CHANGES.
[2020-02-22] MEDS: TICAGRELOR 90 MG TABLET PO SCH ×2 (05:36→17:21)
[2020-02-22 06:23] LABS: CALCIUM, SERUM 8.8 mg/dL (8.5-10.1); CREATININE 1.1 mg/dL (0.6-1.3); MAGNESIUM 2.1 mg/dL (1.8-2.4); PHOSPHORUS 4.5 mg/dL (2.5-4.9); POTASSIUM 4.6 mmol/L (3.5-5.1)
--- NOTE | 2020-02-22 06:25 | NUR ---
RN NOTE: PAIN PATIENT C/O GENERALIZED BODY PAIN 10/18 & REQUESTED TO TAKE NORCO ONLY AT THIS TIME, REFUSED TO TAKE TYLENOL. VITALS ARE 125/68, 62, 22, 98.1, 93%. PRN NORCO 5/325 MG 1 TAB PO GIVEN. WILL CONTINUE TO MONITOR FOR ANY CHANGES.
--- NOTE | 2020-02-22 07:30 | NUR ---
AUTOMATION TECHNICIAN OPENING NOTES Patient received sitting in chair. Patient is alert and oriented, not having any s/s of respiratory distress. Patient is on Hi flow 40 liter with Fi 02 of 100%. No c/o pain or discomfort.Patient teaching done regarding safety and fall precautions. Will continue to monitor. Call light with in reach.
[2020-02-22] MEDS: BLOOD SUGAR DIAGNOSTIC 1 EACH STRIP IN SCH ×4 (07:32→22:42)
[2020-02-22] MEDS: DEXAMETHASONE 4 MG TABLET PO SCH (09:32)
[2020-02-22] MEDS: ASPIRIN 81 MG TAB.CHEW PO SCH (09:32)
[2020-02-22] MEDS: CARVEDILOL 12.5 MG TABLET PO SCH ×2 (09:33→20:33)
[2020-02-22] MEDS: HEPARIN SODIUM, PORCINE 5000 UNITS/1 ML VIAL SQ SCH ×2 (09:34→20:34)
[2020-02-22] MEDS: INSULIN REGULAR, HUMAN 100 UNIT/ML 3 ML VIAL SQ PRN ×3 (12:09→22:41)
[2020-02-22 14:03] LABS: C-REACTIVE PROTEIN 16.8 mg/dL (0.0-0.9)
--- NOTE | 2020-02-22 18:53 | NUR ---
STEWARD/STEWARDESS CLUB CAR CLOSING NOTES Patient sitting in his belgica and shows no s/s of respiratory distress. Patient is alert and oriented, Patient is on Hi flow 40 liter with Fi 02 of 100%. No c/o pain or discomfort.Patient teaching done regarding safety and fall precautions. Patient currently waiting for type and screen for convalescent plasma. Will endorse to next shift to follow up and KENISHA. Call light with in reach.
--- NOTE | 2020-02-22 19:10 | NUR ---
furnace installer opening notes received patient in room sittign in chair on high flow oxygen 40l fio2 100% and 15 l via non breather mask tolerating well sp02 at 92%, remains comfortable at this time,on manager food beverage sr 63, iv site to right wrist intact and patent no redness no infiltration present, oriented to staff and call light and kept within reach, safety precautions maintained, urinal within reach, all needs attended at this time, will continue to monitor and attend to need, awaiting for convalescent plasma for transfusion.
[2020-02-22] MEDS: CEFTRIAXONE 1 G in IV D5W 50 ML IV SCH (20:31)
--- NOTE | 2020-02-22 22:59 | NUR ---
near eastern archaeology lecturer notes patient complained of pain to back and generalized area states 09/17. requested for norco vs assessed wnl 125/70,63,18,94%,98.0. norco prn given as ordered, will continue to monitor for effectiveness.
[2020-02-23] VITALS (7 sets, daily range): BP systolic 115–135; BP diastolic 57–75
--- NOTE | 2020-02-23 00:09 | NUR ---
editor farm journal notes sp convalescent plasma completed, tolerated well, no adverse reactions, vs maintained wnl throughout infusion. sp vs 116/72,97.7,24,98%.63. will continue to monitor.
--- NOTE | 2020-02-23 01:52 | NUR ---
undergraduate internship notes pt complained of abdomen pain, per patient states he " has not had a bowel movement in 10days and has history of constipation". dr terry made aware with new order obtained read back and carried out, colace 200mg qhs and magnesium citrate 1 bottle q7 days prn for constipation. patient and son silviano made aware pt understands orders via bhutanese stafff csr.
[2020-02-23] MEDS ORDERED: MAGNESIUM CITRATE 296 ML BOTTLE PO PRN (02:00)
[2020-02-23] MEDS: DOCUSATE SODIUM 100 MG CAPSULE PO SCH ×2 (02:03→20:58)
--- NOTE | 2020-02-23 03:38 | NUR ---
rn notes patients states colace is ineffective , magnesium citrate given as ordered for constipation will continue to monitor.
[2020-02-23] MEDS: TICAGRELOR 90 MG TABLET PO SCH ×2 (05:26→17:48)
[2020-02-23] MEDS: ONDANSETRON HCL/PF 4 MG/2 ML VIAL IVP PRN (06:05)
--- NOTE | 2020-02-23 06:05 | NUR ---
yarn wrapper notes noted patient burping nausea , requesting shot, prn zofran offered agreed and given ,will continue to monitor for effectiveness.
--- NOTE | 2020-02-23 06:51 | NUR ---
harness placer closing notes patient in room sitting on bed, on high flow oxygen 40liters fio2 100% and 15 l via non breather mask tolerating well sp02 at 92%, remains comfortable at this time,on groundwater monitoring technician sr 87, iv site to right wrist intact and patent no redness no infiltration present, call light kept within reach, safety precautions maintained, urinal within reach total output 800, still no bm . bedside commode offered, no vomitting or nausea,zofran effective at this time, all needs attended at this time, will continue to monitor and endorse to next shift, tolerates s/p convalescent plasma no adverse reactions.
[2020-02-23 07:17] LABS: BASOPHILS % (AUTO) 0.3 % (0.0-2.0); EOSINOPHILS % (AUTO) 3.2 % (0.0-6.0); HEMATOCRIT 48 % (39-51); HEMOGLOBIN 15.8 g/dL (13.5-17.5); LYMPHOCYTES # (AUTO) 0.7 /CMM (0.8-4.8); LYMPHOCYTES % (AUTO) 8.2 % (20.0-44.0); MEAN CORPUSCULAR HGB CONC 33 g/dl (31.0-36.0); MEAN CORPUSCULAR VOLUME 92 fL (80-96); MONOCYTES # (AUTO) 0.4 /CMM (0.1-1.30); MONOCYTES % (AUTO) 5.3 % (2.0-12.0); NEUTROPHILS # (AUTO) 6.8 /CMM (1.8-8.9); PLATELET COUNT (AUTO) 384 /CMM (150-450); RED BLOOD CELL COUNT(AUTO) 5.17 MIL/uL (4.5-6.0); WHITE BLOOD COUNT (AUTO) 8.1 K/uL (4.3-11.0)
[2020-02-23 07:48] LABS: CALCIUM, SERUM 8.9 mg/dL (8.5-10.1); MAGNESIUM 2.1 mg/dL (1.8-2.4); PHOSPHORUS 4.5 mg/dL (2.5-4.9); POTASSIUM 4.5 mmol/L (3.5-5.1)
[2020-02-23] MEDS: ASPIRIN 81 MG TAB.CHEW PO SCH (08:04)
[2020-02-23] MEDS: CARVEDILOL 12.5 MG TABLET PO SCH ×2 (08:05→20:59)
[2020-02-23] MEDS: DEXAMETHASONE 4 MG TABLET PO SCH (08:05)
[2020-02-23] MEDS: BLOOD SUGAR DIAGNOSTIC 1 EACH STRIP IN SCH ×4 (08:22→23:49)
--- NOTE | 2020-02-23 08:22 | NUR ---
TELE/RN OPENING NOTE THE PATIENT IS RECEIVED IN BED. PATIENT IS ALERT AND ORIENTED X4. DENIES PAIN. THE PATIENT IS HIGH FLOW 40 L FIO2 100%. RESPIRATION REGULAR WITH EPISODES OF BEING LABORED. THE PATIENT VERBALIZES SOB WITH EXERTION. TELE BOX READING IS SINUS RHYTHM 76. RFA G 18 PATENT AND SALINE LOCKED. BED LOW AND LOCKED. SIDE RAILS UP X2. CALL LIGHT WITHIN REACH. WILL CONTINUE TO MONITOR.
--- NOTE | 2020-02-23 10:50 | NUR ---
RN NOTE NEW ORDER FROM DR WHITE: BRADLEY 145 MCG 1 CAPSULE PO QD" READ BACK, VERIFIED. NOTED AND CARRIED OUT.
[2020-02-23] MEDS ORDERED: LINZESS 145 MCG PO SCH (11:00)
[2020-02-23] MEDS: INSULIN REGULAR, HUMAN 100 UNIT/ML 3 ML VIAL SQ PRN ×2 (12:16→17:52)
[2020-02-23 12:20] LABS: C-REACTIVE PROTEIN 8.5 mg/dL (0.0-0.9)
--- NOTE | 2020-02-23 15:00 | NUR ---
RN NOTE LINZESS 145 MCG 1 CAP PO TO BE GIVEN ONCE. NOTED AND CARRIED OUT.
--- NOTE | 2020-02-23 15:05 | NUR ---
RN NOTE PER PATIENT REQUEST MD ORDERED LINZESS 145 MCG 2 CAPS QD PRN STARTING 02/24/20. NOTED AND CARRIED OUT
[2020-02-23] MEDS ORDERED: LINZESS 145MCG CAPSULE PO ONE (15:30)
--- NOTE | 2020-02-23 19:03 | NUR ---
RN CLOSING NOTE ALERT AND ORIENTED X4. DENIES PAIN. HIGH FLOW 40 L FIO2 100%. PATIENT GETS SOB WITH EXERTION. TELE BOX READING IS SR. RFA G 18 PATENT AND SALINE LOCKED. BED LOW AND LOCKED. SIDE RAILS UP X2. CALL LIGHT WITHIN REACH. WILL ENDORSE TO NIGHTS SHIFT.
--- NOTE | 2020-02-23 19:30 | NUR ---
RN NOTE RECEIVED SITTING IN BED, AO X 4. PATIENT IN NO S/SX OF ACUTE DISTRESS AT THIS TIME. PATIENT'S BREATHING IS EVEN AND UNLABORED. PATIENT IS ON HIGH FLOW 40 LPM, AT 100% FIO2, AND 15L VIA NRB, SATURATION AT 80'S TO HIGHEST OF 91, BUT NOT SUSTAINING. PATIENT ON TELE MONITOR READING SR, HR IS 70. NOTED IV SITE AT R WRIST 18G, PATENT AND FLUSHING WELL, NO S/S OF INFECTION OR INFILTRATION. PATIENT HAS URINAL AND COMMODE AT BEDSIDE, ADVISED PATIENT TO CALL FOR ASSISTANCE WITH COMMODE. SAFETY MEASURES IMPLEMENTED PER PROTOCOL. PATIENT BED ALARM IS ON. HEAD OF BED ELEVATED. BED IS LOCKED, IN LOWEST POSITION AND SIDE RAILS UP. CALL LIGHT WITHIN REACH OF THE PATIENT. WILL CONTINUE TO MONITOR AND REASSESS FOR ANY CHANGES.
--- NOTE | 2020-02-23 21:00 | NUR ---
RN NOTE TELEPHONE CALL FROM SON, VALERIE, REGARDING PATIENT'S STATUS. DISCUSSED REGARDING PT'S CONSTIPATION. AND OXYGENATION STATUS. ADVISED HIM OF CURRENT REGIMEN WHICH HE ACKNOWLEDGED.
[2020-02-23] MEDS: GUAIFENESIN/CODEINE 10 ML UDC PO PRN (22:55)
--- NOTE | 2020-02-23 23:00 | NUR ---
RN NOTE PT'S SATURATION FLUCTUATING 80-88, RESTLESS AND COUGHING, COUGH MEDICINE ADMINISTERED. PT SEATED UP IN THE CHAIR THE WHOLE TIME. REMAINS ON HIGH FLOW OXYGEN AND NRB.
[2020-02-24] VITALS: BP 128/69
[2020-02-24] MEDS: ALBUTEROL SULFATE 8 GM HFA.AER.AD IH PRN (00:09)
--- NOTE | 2020-02-24 00:09 | NUR ---
RN NOTE PATIENT WAS RESTLESS AND UNABLE TO SLEEP. CONTINUES TO BE ON HIGH FLOW AND NRB. SATURATION FLUCTUATING TO 80'S. INHALER ADMINISTERED. OFFERED SLEEPING MEDICATION BUT REFUSED AT THIS TIME. UP IN THE CHAIR, ALERT AND ORIENTED X 4. CALL LIGHT WITHIN REACH. REMINDED TO CALL FOR ASSISTANCE.
[2020-02-24] MEDS: ACETAMINOPHEN 325 MG TABLET PO PRN (00:44)
[2020-02-24] MEDS ORDERED: LINZESS 145MCG CAPSULE PO PRN (01:00)
--- NOTE | 2020-02-24 02:30 | NUR ---
RN NOTE PATIENT CALLED FOR ASSISTANCE, REQUESTED SLEEPING MEDICATION. PRN SLEEPING PILL ADMINISTERED. PATIENT BACK TO BED.
[2020-02-24] MEDS: TEMAZEPAM 15 MG CAPSULE PO PRN (02:33)
--- NOTE | 2020-02-24 03:30 | NUR ---
RN NOTE PATIENT SLEEPING IN BED, BED ALARM ACTIVATED. WILL REGULARLY MONITOR OXYGENATION STATUS.
--- NOTE | 2020-02-24 04:28 | NUR ---
RN NOTE HEARD BED ALARM, A SCREAM FOR HELP WAS HEARD, FOUND PATIENT IN THE FLOOR UNRESPONSIVE WITHOUT HIS OXYGEN. PATIENT BREATHING AND WITH PULSE, CALLED RAPID RESPONSE TEAM AT 0430 WHILE 4 STAFF TRIED TO PUT PATIENT BACK TO BED. CONNECTED PATIENT TO HIGH FLOW AND NRB IMMEDIATELY. INSURANCE VERIFICATION REPRESENTATIVE CAME. ABG WAS ORDERED. BLOOD SUGAR WAS CHECKED 203, STARTED TO BE RESPONSIVE BUT RESTLESS , ABG RESULT CAME BACK AND TRANSFERRED PATIENT TO ICU IMMEDIATELY AFTER.
--- NOTE | 2020-02-24 05:10 | NUR ---
RN NOTES RECEIVED PT FROM [facility]. PT IS RESTLESS. ON NONREBREATHER AT 15LPM WITH O2 SAT OF 65-70S RT AT BEDSIDE. PREPARING FOR INTUBATION.
--- NOTE | 2020-02-24 05:24 | NUR ---
RN NOTE PT INTUBATED BY ER . PT WITH NO PULSE, PEA. ACTIVATED CODE BLUE. RT AND CHARGE NURSE AT BED SIDE.
--- NOTE | 2020-02-24 05:34 | NUR ---
RN NOTE DR TRAN WAS NOTIFIED OF INCIDENT. DR TRAN ACKNOWLEDGED.
--- NOTE | 2020-02-24 05:38 | NUR ---
RN NOTE PT PRONOUNCED BR ER MD. REFER TO CODE BLUE SHEET. CHARGE NURSE NOTIFIED FAMILY AND ATTENDING MD.
--- NOTE | 2020-02-24 06:06 | NUR ---
RT RT RESPONDED TO RAPID RESPONSE IN [facility] PT ON HIGH FLOW NASAL CANNULA ON MAX SETTINGS OF 40L 100% FI02 WITH NRB MASK 15 LPM. PT SATURATION RANGING BETWEEN 60 - 77% ON MONITOR. ICU GENERATION ENGINEER ED AND DSAH CHANEL PRESENT. STAT ABG DRAWN AT 0432 WITH CRITICAL VALUES PH 7.08, CO2 61, PAO2 35.8 HC03 17.8. RESULTS REPORTED TO GENERATION ENGINEER ED. GENERATION ENGINEER ADVISE PT WILL BE INTUBATED AND TO TRANSPORT PT TO ICU RM 256. PT TRANSPORTED TO ICU. INTUBATION SET UP BY RT. DR CARTER ARRIVE BEDSIDE. PT INTUBATED WITH 7.5CM ETT POSITIONED 22CM AT THE LIP. ONCE INTUBATED AIXA HERMAN WAS CALLED AT 0524, CHEST COMPRESSIONS INITIATED, PT CONNECTED TO PB 840 VENTILATOR SET TO RATE 18, VT 550 100% +5. PT PRONOUNCED AT 0538.
--- NOTE | 2020-02-24 06:22 | NUR ---
RN NOTE CALLED ONE [facility]GACY SPOKE TO AUTUMN WITH CASE NUM [id number].
[2020-02-24 08:53] LABS: ABG OXYGEN SATURATION 45.2 % (92.0-98.5); ABG PH 7.083 (7.350-7.450); ABG PO2 35.8 mmHg (75.0-100.0); AaDO2 616.2 mmHg; COHb 1.2 % (0.5-1.5); MetHb 0.3 % (0.0-1.5); O2Hb 44.5 % (94.0-97.0); SITE, ABG Right Radial; VENT MODE, BG HFNC 100% +NRB 15 LPM
[2020-02-24] MEDS ORDERED: DEXTROSE 50%-WATER 50 ML DISP.SYRIN ONE (09:00)
[2020-02-24] MEDS ORDERED: ATROPINE SULFATE 1 MG/10 ML DISP.SYRIN ONE (09:00)
[2020-02-24] MEDS ORDERED: EPINEPHRINE (1:10,000) SYRINGE 1 MG/10 ML DISP.SYRIN IVP ONE (09:46)
[2020-02-24] MEDS ORDERED: FEE EMEERGENCY 1 MIN EA MC ONE (09:46)
[2020-02-24] MEDS ORDERED: SODIUM BICARBONATE SYR 50 MEQ/50 ML DISP.SYRIN IV ONE (09:46)
[2020-02-24] MEDS ORDERED: CALCIUM CHLORIDE 1,000 MG/10 ML DISP.SYRIN IV ONE (09:46)
[2020-02-24] MEDS ORDERED: ATROPINE SULFATE 1 MG/10 ML DISP.SYRIN IV ONE (09:46)
== END 2020-02-24 09:47 | disposition expired | DRG 177 ==
LOC: ER 19:35 → TRANSITION 21:23 → TELE1 22:03 → ICU 02-24 04:51
PROVIDERS: ADMIT Nurse Practitioner Acute Care; ATTEND Registered Nurse
PROC: XW033E5 Introduction of Remdesivir Anti-infective into Peripheral Vein, Percutaneous Approach, New Technology Group 5 (ICD-10-PCS; 2020-02-15)
PROC: XW13325 Transfusion of Convalescent Plasma (Nonautologous) into Peripheral Vein, Percutaneous Approach, New Technology Group 5 (ICD-10-PCS; principal; 2020-02-18)
PROC: 5A2204Z Restoration of Cardiac Rhythm, Single (ICD-10-PCS; 2020-02-24)
PROC: 0BH17EZ Insertion of Endotracheal Airway into Trachea, Via Natural or Artificial Opening (ICD-10-PCS; 2020-02-24)
DX: U07.1 COVID-19 (principal); N17.0 Acute kidney failure with tubular necrosis; J96.01 Acute respiratory failure with hypoxia; J12.82 Pneumonia due to coronavirus disease 2019; J15.9 Unspecified bacterial pneumonia; I21.A1 Myocardial infarction type 2; E87.2 Acidosis; E78.5 Hyperlipidemia, unspecified; I11.0 Hypertensive heart disease with heart failure; I25.10 Atherosclerotic heart disease of native coronary artery without angina pectoris; I25.2 Old myocardial infarction; I50.9 Heart failure, unspecified; E11.65 Type 2 diabetes mellitus with hyperglycemia; I70.0 Atherosclerosis of aorta; T38.0X5A Adverse effect of glucocorticoids and synthetic analogues, initial encounter; Y92.9 Unspecified place or not applicable; Z68.37 Body mass index [BMI] 37.0-37.9, adult; Z79.84 Long term (current) use of oral hypoglycemic drugs; Z95.5 Presence of coronary angioplasty implant and graft; D72.810 Lymphocytopenia; E66.9 Obesity, unspecified; N13.9 Obstructive and reflux uropathy, unspecified
CPT/HCPCS: 36415; 36600; 71045-TC; 76705-TC; 80048-TC; 80053-TC; 80076-TC; 82248-TC; 82550-TC; 82728-TC; 82803-TC; 82962-TC; 83605-TC; 83615-TC; 83735-TC; 83880; 84100-TC; 84484-TC; 85025-TC; 85378-TC; 85610-TC; 85730-TC; 86140-TC; 86480; 86850-TC; 87040-TC; 87081-TC; 92950-TC; 94760-TC; 94762-TC; 94799-TC; A4216; G0378; J0171; J0456; J0461; J0696; J1100; J1200; J1644; J1815; J2405; J3262; J3490; J7030; J7040; J7050; J7060; J8540; P9017-BL; U0003